=== PATIENT | male | born 2000 | race Two or more races ===

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

== ENCOUNTER 2022-07-14 21:26 | Emergency (ER) | payer MEDICAID ==
[~2022-07-14] VITALS: Ht 177.8 cm; Wt 113.6 kg
[2022-07-14 23:18] VITALS: BP 149/97
[2022-07-14] MEDS ORDERED: IBUP-1455 PO (23:56)
[2022-07-15] MEDS ORDERED: HYDROcodone-ACET 5/325MG TAB PO ONE
== END 2022-07-15 00:12 | disposition home or self-care (01) ==
LOC: ER 21:26
DX: S83.92XA Sprain of unspecified site of left knee, initial encounter (principal); X50.1XXA Overexertion from prolonged static or awkward postures, initial encounter; Y93.68 Activity, volleyball (beach) (court); Y92.89 Other specified places as the place of occurrence of the external cause; Y99.8 Other external cause status
CPT/HCPCS: 29505; 73560

== ENCOUNTER 2022-07-28 16:20 | Emergency (ER) | payer MEDICAID ==
[~2022-07-28] VITALS: Ht 177.8 cm; Wt 105.0 kg
[~2022-07-28 16:20] MED LIST: IBUP-1455 PO
[2022-07-28 16:38] VITALS: BP 145/84
== END 2022-07-28 17:47 | disposition home or self-care (01) ==
LOC: ER 16:20
DX: S83.92XD Sprain of unspecified site of left knee, subsequent encounter (principal); Z88.6 Allergy status to analgesic agent; X58.XXXD Exposure to other specified factors, subsequent encounter

== ENCOUNTER 2023-04-25 13:54 | Emergency (ER) | payer MEDICAID ==
[~2023-04-25] VITALS: Ht 177.8 cm; Wt 110.3 kg
[2023-04-25] MEDS ORDERED: TOB03OS OP (14:54)
[2023-04-25 14:59] VITALS: BP 136/82; PULSE 79; RESP 16; O2SAT 98
== END 2023-04-25 15:01 | disposition home or self-care (01) ==
LOC: ER 13:54
DX: S05.02XA Injury of conjunctiva and corneal abrasion without foreign body, left eye, initial encounter (principal); Z79.2 Long term (current) use of antibiotics; Z79.1 Long term (current) use of non-steroidal anti-inflammatories (NSAID); X58.XXXA Exposure to other specified factors, initial encounter; Y93.89 Activity, other specified; Y92.89 Other specified places as the place of occurrence of the external cause; Y99.8 Other external cause status
CPT/HCPCS: 65222